=== PATIENT | female | born 1985 | race African-American/Black ===

== ENCOUNTER 2019-02-27 11:40 | Emergency (ER) | payer MEDICAID ==
[~2019-02-27] VITALS: Ht 160 cm; Wt 53.0 kg
[2019-02-27 12:21] LABS: CLARITY URINE CLOUDY (CLEAR); COLOR URINE YELLOW (YELLOW); KETONES URINE NEGATIVE (NEGATIVE); LEUKOCYTE ESTERASE URINE NEGATIVE (NEGATIVE); NITRITE URINE NEGATIVE (NEGATIVE); OCCULT BLOOD URINE TRACE (NEGATIVE); PH URINE 5.5 (4.5-8.0); PROTEIN URINE 1+ (NEGATIVE); SPECIFIC GRAVITY URINE 1.021 (1.005-1.030); UROBILINOGEN URINE 0.2 E.U./dL (0.2-1.0)
[2019-02-27 12:43] VITALS: BP 149/113
[2019-02-27 12:45] LABS: *BARBITURATES SCREEN URINE NEGATIVE (NEGATIVE); *BENZODIAZEPINES SCREEN URINE NEGATIVE (NEGATIVE); *COCAINE SCREEN URINE NEGATIVE (NEGATIVE); METHADONE URINE SCREEN NEGATIVE (NEGATIVE)
[2019-02-27 12:46] LABS: CANNABINOID URINE SCREEN NEGATIVE (NEGATIVE); OPIATES URINE SCREEN NEGATIVE (NEGATIVE); PHENCYCLIDINE URINE SCREEN NEGATIVE (NEGATIVE)
[2019-02-27 12:50] LABS: *AMPHETAMINES SCREEN URINE PRESUMTIVE POSITIVE (NEGATIVE)
[2019-02-27 13:05] LABS: CHLORIDE 102 mEq/L (98-107)
[2019-02-27 13:09] LABS: ETHANOL BLOOD < 10 mg/dL
[2019-02-27 13:10] LABS: HCG SCREEN NEGATIVE
[2019-02-27 13:12] LABS: BASOPHILS % 0.4 % (0.0-2.0); EOSINOPHILS % 0.2 % (0.0-5.0); HEMATOCRIT. 41.9 % (36.0-48.0); HEMOGLOBIN. 14.1 g/dL (12.0-16.0); MEAN CORPUSCULAR VOLUME 86.2 fL (81.0-99.0); MONOCYTES % 9.1 % (2.0-8.0); NEUTROPHILS % 73.3 % (40.0-76.0); PLATELET 268 x1000/uL (130-400); RED BLOOD CELL COUNT 4.86 mill/uL (4.2-5.4); RED CELL DISTRIBUTION WIDTH 15.1 % (11.6-14.6)
[2019-02-27] MEDS ORDERED: LORAZEPAM 1MG TABLET PO ONE (14:00)
== END 2019-02-27 14:23 | disposition left against medical advice (07) ==
LOC: ER 11:51
DX: T43.621A Poisoning by amphetamines, accidental (unintentional), initial encounter (principal); F10.129 Alcohol abuse with intoxication, unspecified; F17.210 Nicotine dependence, cigarettes, uncomplicated; Z71.6 Tobacco abuse counseling; Y92.811 Bus as the place of occurrence of the external cause
CPT/HCPCS: 36415; 80305; 80320; 81025; 84703; 99283; 99406; G0480

== ENCOUNTER 2019-04-02 15:49 | Emergency (ER) | payer MEDICAID ==
[~2019-04-02] VITALS: Ht 167.6 cm; Wt 49.0 kg
[2019-04-02] MEDS ORDERED: HALOPERIDOL LACTATE 5MG/ML VIAL IM STA (16:23)
[2019-04-02] MEDS ORDERED: LORAZEPAM 2MG/ML CPJ IM STA (16:23)
[2019-04-02] MEDS ORDERED: DIPHENHYDRAMINE 50MG/ML VIAL IM STA (16:23)
[2019-04-02 16:52] LABS: BASOPHILS % 0.5 % (0.0-2.0); EOSINOPHILS % 0.1 % (0.0-5.0); HEMATOCRIT. 40.3 % (36.0-48.0); HEMOGLOBIN. 13.3 g/dL (12.0-16.0); LYMPHOCYTES % 9.3 % (20.0-50.0); MEAN CORPUSCULAR HEMOGLOBIN 29.2 pg (28.0-32.0); MEAN CORPUSCULAR VOLUME 88.6 fL (81.0-99.0); MEAN PLATELET VOLUME 8.4 fl (7.4-10.4); MONOCYTES % 7.2 % (2.0-8.0); NEUTROPHILS % 82.9 % (40.0-76.0); PLATELET 263 x1000/uL (130-400); RED BLOOD CELL COUNT 4.55 mill/uL (4.2-5.4); RED CELL DISTRIBUTION WIDTH 15.4 % (11.6-14.6)
[2019-04-02 16:54] LABS: CHLORIDE 110 mEq/L (98-107)
[2019-04-02 17:00] LABS: ETHANOL BLOOD < 10 mg/dL
[2019-04-02 18:56] LABS: CLARITY URINE CLOUDY (CLEAR); COLOR URINE YELLOW (YELLOW); KETONES URINE 2+ (NEGATIVE); LEUKOCYTE ESTERASE URINE TRACE (NEGATIVE); NITRITE URINE NEGATIVE (NEGATIVE); OCCULT BLOOD URINE 3+ (NEGATIVE); PH URINE 6.5 (4.5-8.0); PROTEIN URINE 2+ (NEGATIVE); SPECIFIC GRAVITY URINE 1.024 (1.005-1.030)
[2019-04-02 19:06] LABS: *BARBITURATES SCREEN URINE NEGATIVE (NEGATIVE); *BENZODIAZEPINES SCREEN URINE NEGATIVE (NEGATIVE); *COCAINE SCREEN URINE NEGATIVE (NEGATIVE); METHADONE URINE SCREEN NEGATIVE (NEGATIVE); OPIATES URINE SCREEN NEGATIVE (NEGATIVE); PHENCYCLIDINE URINE SCREEN NEGATIVE (NEGATIVE)
[2019-04-02 19:07] LABS: CANNABINOID URINE SCREEN NEGATIVE (NEGATIVE)
[2019-04-02 19:51] LABS: *AMPHETAMINES SCREEN URINE PRESUMTIVE POSITIVE (NEGATIVE)
[2019-04-02] MEDS ORDERED: CEFTRIAXONE SODIUM 1 G/VIAL IM ONE (20:00)
[2019-04-05 10:30] VITALS: BP 110/62
== END 2019-04-05 10:53 | disposition home or self-care (01) ==
LOC: ER 15:57
DX: F15.10 Other stimulant abuse, uncomplicated (principal); R41.82 Altered mental status, unspecified; R45.1 Restlessness and agitation; R61 Generalized hyperhidrosis
CPT/HCPCS: 36415; 70450; 80053; 80305; 80320; 81003; 81025; 85025; 93005; 96372; 99284; J0696; J1200; J1630; J2060; Z7610; G0480